=== PATIENT | female | born 1950 | race Caucasian/White ===

== ENCOUNTER → 2024-04-05 | Outpatient (CLI) | payer MEDICARE, BC, SELFPAY ==
[2024-04-05 13:31] LABS: Basophils % (Auto) 1 % (0-2.5); Eosinophils # (Auto) 0.1 Thou/mm3 (0.0-0.5); Eosinophils % (Auto) 3 % (0-10); Hematocrit 42.3 % (36.0-46.0); Hemoglobin 13.5 g/dL (12.0-16.0); Immature Granulocytes % (Auto) 0 % (0-0); Immature Granulocytes Auto 0.01 Thou/mm3 (0.00-0.00); Lymphocytes # (Auto) 1.6 Thou/mm3 (1.0-4.8); Lymphocytes % (Auto) 42 % (10-50); Mean Corpuscular HGB Conc 31.9 g/dl (31.0-37.0); Mean Corpuscular Hemoglobin 32.2 pg (25.0-35.0); Mean Corpuscular Volume 101 fL (80-100); Monocytes # (Auto) 0.4 Thou/mm3 (0.0-0.8); Monocytes % (Auto) 9 % (0-12); Neutrophils # (Auto) 1.7 Thou/mm3 (1.8-7.7); Neutrophils % (Auto) 45 % (37-80); Nucleated Red Blood Cell % 0 /100 WBC (0); Platelet Count 250 Thou/mm3 (140-440); RDW Standard Deviation 54.5 fL (36.4-46.3); Red Blood Count 4.19 Miln/mm3 (4.00-5.20); White Blood Count 3.8 Thou/mm3 (3.6-11.0)
[2024-04-05 13:50] LABS: Alanine Aminotransferase 17 U/L (10-49); Albumin, Serum 4.1 gm/dL (3.4-4.8); Alkaline Phosphatase 76 U/L (46-116); Anion Gap 4 (7-16); Aspartate Amino Transferase 27 U/L (0-34); BUN/Creatinine Ratio 14 Ratio (12-20); Bilirubin,Direct 0.3 mg/dL (0.0-0.3); Blood Urea Nitrogen 11 mg/dL (9-23); Calcium 9.5 mg/dL (8.3-10.6); Carbon Dioxide 28.8 mMol/L (20.0-31.0); Cardiac Risk Estimate 2.3 RATIO (3.7-5.6); Chloride 106 mMol/L (98-107); Cholesterol 161 mg/dL (132-200); Creatinine (Component) 0.8 mg/dL (0.6-1.3); Glucose 90 mg/dL (74-106); HDL Cholesterol 71 mg/dL (40-60); LDL Cholesterol,Calculated 77 mg/dL (0-130); Osmolality,Calculated 276 (275-295); Potassium 5.1 mMol/L (3.4-5.1); Sodium 139 mMol/L (136-145); Thyroid Stimulating Hormone 2.26 uIU/mL (0.55-4.78); Total Protein 6.3 gm/dL (5.7-8.2); Triglycerides 66 mg/dL (30-150); eGFR > 60 See Note
== END | disposition home or self-care (01) ==
LOC: COPL 12:17
PROVIDERS: PCP Family Medicine; Referring Provider Internal Medicine Cardiovascular Disease; Visit Provider Internal Medicine Cardiovascular Disease
DX: I10 Essential (primary) hypertension (principal); I49.9 Cardiac arrhythmia, unspecified; E78.5 Hyperlipidemia, unspecified
CPT/HCPCS: 36415; 80048; 80061; 80076; 84439; 84443; 85025

== ENCOUNTER → 2024-06-19 | Outpatient (CLI) | payer MEDICARE, BC, SELFPAY ==
--- NOTE | 2024-06-19 14:00 | XR_ITS ---
Examination: CT chest, without intravenous contrast. Sagittal and coronal 2-D reconstructions. 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 Bone and lung density settings are obtained. Sagittal and coronal 2-D reconstructions have been obtained. Low dose protocols were performed. One or more of the following dose reduction techniques were used; automated exposure control, adjustment of the mA and/or KV according to patient size, use of iterative reconstruction technique. Findings: Thoracic aortic calcification no aneurysmal dilatation Main pulmonary artery segment 30 mm Moderate calcification left anterior descending left circumflex coronary arteries No paratracheal tracheobronchial or bronchopulmonary adenopathy COPD Stable bilateral pulmonary nodules Trace pericardial thickening No pancreatic mass Kidneys partially visualized no hydronephrosis Mild diffuse thoracic degenerative disc disease IMPRESSION: Stable pulmonary nodules compared with July 14, 2023 No new pulmonary nodules COPD
== END | disposition home or self-care (01) ==
PROVIDERS: PCP Family Medicine; Referring Provider Specialist; Visit Provider Specialist
DX: R91.8 Other nonspecific abnormal finding of lung field (principal); J44.9 Chronic obstructive pulmonary disease, unspecified
CPT/HCPCS: 71250

== ENCOUNTER → 2024-07-10 | Outpatient (CLI) | payer MEDICARE, BC, SELFPAY ==
--- NOTE | 2024-07-10 12:59 | EKG_ITS ---
[facility] Test Date: 2024-07-10 Pat Name: GENI FIORE Department: Room: - Gender: Female [employer]: [employer] : 1950 Requested By: Saran Henry Order Number: [id number] Reading MD: Saran Henry Measurements Intervals [place] Rate: 62 P: 73 RI: 215 QRS: 53 QRSD: 137 T: 24 QT: 461 QTc: 469 Interpretive Statements SINUS RHYTHM WITH FIRST DEGREE AV BLOCK WITH FREQUENT VENTRICULAR PREMATURE COMPLEXES INTRAVENTRICULAR CONDUCTION DELAY Compared to ECG 11/17/2017 07:31:27 Ventricular premature complex(es) now present First degree AV block now present Intraventricular conduction delay now present Incomplete right bundle-branch block no longer present /store/S0/[id number]/[id number].pdf
== END | disposition home or self-care (01) ==
LOC: SEKG 12:28
PROVIDERS: PCP Family Medicine; Referring Provider Student in an Organized Health Care Education/Training Program; Visit Provider Student in an Organized Health Care Education/Training Program
DX: Z01.818 Encounter for other preprocedural examination (principal)
CPT/HCPCS: 93005

== ENCOUNTER → 2024-11-05 | Outpatient (CLI) | payer MEDICARE, BC, SELFPAY ==
[2024-11-05 12:20] LABS: Basophils % (Auto) 1 % (0-2.5); Eosinophils # (Auto) 0.1 Thou/mm3 (0.0-0.5); Eosinophils % (Auto) 3 % (0-10); Hematocrit 37.4 % (36.0-46.0); Hemoglobin 12.9 g/dL (12.0-16.0); Immature Granulocytes % (Auto) 0 % (0-0); Immature Granulocytes Auto 0.01 Thou/mm3 (0.00-0.00); Lymphocytes # (Auto) 1.4 Thou/mm3 (1.0-4.8); Lymphocytes % (Auto) 37 % (10-50); Mean Corpuscular HGB Conc 34.5 g/dl (31.0-37.0); Mean Corpuscular Hemoglobin 32.7 pg (25.0-35.0); Mean Corpuscular Volume 95 fL (80-100); Monocytes # (Auto) 0.3 Thou/mm3 (0.0-0.8); Monocytes % (Auto) 8 % (0-12); Neutrophils # (Auto) 1.9 Thou/mm3 (1.8-7.7); Neutrophils % (Auto) 50 % (37-80); Nucleated Red Blood Cell % 0 /100 WBC (0); Platelet Count 223 Thou/mm3 (140-440); RDW Standard Deviation 48.6 fL (36.4-46.3); Red Blood Count 3.94 Miln/mm3 (4.00-5.20); White Blood Count 3.8 Thou/mm3 (3.6-11.0)
[2024-11-05 12:34] LABS: Alanine Aminotransferase 14 U/L (10-49); Albumin/Globulin Ratio 1.9 (1.2-2.2); Alkaline Phosphatase 74 U/L (46-116); Anion Gap 9 (7-16); BUN/Creatinine Ratio 12 Ratio (12-20); Bilirubin,Direct 0.3 mg/dL (0.0-0.3); Blood Urea Nitrogen 11 mg/dL (9-23); Calcium 9.2 mg/dL (8.3-10.6); Calcium (Corrected) 9.2 mg/dL (8.5-10.1); Carbon Dioxide 28.9 mMol/L (20.0-31.0); Cardiac Risk Estimate 2.1 RATIO (3.7-5.6); Chloride 102 mMol/L (98-107); Cholesterol 157 mg/dL (132-200); Creatinine (Component) 0.9 mg/dL (0.6-1.3); Free T4 (Free Thyroxine) 1.17 ng/dL (0.89-1.76); Globulin 2.1 gm/dL (2.3-3.5); Glucose 92 mg/dL (74-106); HDL Cholesterol 76 mg/dL (40-60); LDL Cholesterol,Calculated 69 mg/dL (0-130); Osmolality,Calculated 278 (275-295); Potassium 4.4 mMol/L (3.4-5.1); Sodium 140 mMol/L (136-145); Thyroid Stimulating Hormone 2.91 uIU/mL (0.55-4.78); Total Protein 6.1 gm/dL (5.7-8.2); Triglycerides 59 mg/dL (30-150); eGFR > 60 See Note
[2024-11-05 13:13] LABS: Collection Type, Urine Clean Catch
[2024-11-05 14:04] LABS: Bilirubin,Urine Negative (Negative); Blood,Urine Negative (Negative); Clarity,Urine Clear (Clear/Hazy); Color,Urine Lt-Yellow (Lt Yel-Yel); Culture Indicated,Urine Not Indicated; Glucose, Urine Negative (Negative); Ketones,Urine Negative (Negative); Leukocyte Esterase,Urine Negative (Negative); Nitrite,Urine Negative (Negative); Protein,Urine Negative (Neg - Trace); RBC,Urine 2 /hpf (0-3); Squamous Epithelial Cell,Urine < 1 /hpf (0-5); Urobilinogen,Urine Negative mg/dL (0.0-1.0); WBC,Urine 1 /hpf (0-5)
== END | disposition home or self-care (01) ==
LOC: COPL 11:25
PROVIDERS: PCP Nurse Practitioner Family; Referring Provider Internal Medicine Cardiovascular Disease; Visit Provider Internal Medicine Cardiovascular Disease
DX: Z00.00 Encounter for general adult medical examination without abnormal findings (principal); I10 Essential (primary) hypertension; E78.5 Hyperlipidemia, unspecified; I49.9 Cardiac arrhythmia, unspecified
CPT/HCPCS: 36415; 80053; 80061; 81001; 82248; 84439; 84443; 85025

== ENCOUNTER → 2024-12-27 | Outpatient (CLI) | payer MEDICARE, BC, SELFPAY ==
--- NOTE | 2024-12-27 | XR_ITS ---
Examination: PA lateral chest 2 views TECHNIQUE: Upright PA lateral chest 2 views Date and time: December 27, 2024 1248 hours, comparison made to chest films dating to July 09, 2022, CT chest dating to August 17, 2022 INDICATIONS: Pulmonary nodule history FINDINGS: Stable 7 mm pulmonary nodule left upper lobe Stable 7 mm pulmonary nodule right midlung No new pulmonary nodules Normal heart size IMPRESSION: Stable pulmonary nodules dating to chest film July 09, 2022
== END | disposition home or self-care (01) ==
LOC: CDIM 11:18
PROVIDERS: PCP Family Medicine; Referring Provider Specialist; Visit Provider Specialist
DX: R91.8 Other nonspecific abnormal finding of lung field (principal)
CPT/HCPCS: 71046

== ENCOUNTER → 2025-01-15 | Outpatient (CLI) | payer MEDICARE, BC, SELFPAY ==
--- NOTE | 2025-01-15 13:00 | XR_ITS ---
Examination: Screening digital mammography, bilateral Computer aided detection 3-D breast Tomosynthesis, bilateral Date and time of exam: January 15, 2025 1318 hours Compared to mammograms dating to 02/16/2018 Indication: Screening Technique: Nonmagnified MLO, CC views of the breasts to been obtained, reconstructed from 3-D Tomosynthesis images. R2 computer aided detection program utilized for evaluation of suspicious masses and/or abnormal calcifications. 3-D Tomosynthesis images obtained. Findings: Scattered areas of fibroglandular density. Benign calcifications. No interval suspicious masses Impression: BI-RADS category II: Benign Findings. Recommend 1 year follow-up mammogram.
== END | disposition home or self-care (01) ==
PROVIDERS: PCP Nurse Practitioner Family; Referring Provider Nurse Practitioner Family; Visit Provider Nurse Practitioner Family
DX: Z12.31 Encounter for screening mammogram for malignant neoplasm of breast (principal); R92.323 Mammographic fibroglandular density, bilateral breasts; R92.1 Mammographic calcification found on diagnostic imaging of breast
CPT/HCPCS: 77063; 77067